=== PATIENT | female | born 1960 | race Caucasian/White ===

== ENCOUNTER → 2017-02-14 | Day surgery (SDC) | payer OTHER ==
[~2017-02-14] MED LIST: ANASTROZOLE1 MG PO; ASPIRIN EC325 MG PO; BUSPIRONE HCL10 MG PO; COLACE100 MG PO; FOLIC ACID1 MG PO; KEFLEX250 MG PO; LIPITOR40 MG PO; NEXIUM40 MG PO; NORCO 5-325 TA1 EACH PO; OMEPRAZOLE10 MG PO; VITAMIN D400 UNIT PO; ZOLOFT100 MG PO
== END | disposition home or self-care (01) ==
LOC: FAS 11:24
DX: T85.49XA Other mechanical complication of breast prosthesis and implant, initial encounter (principal); G47.30 Sleep apnea, unspecified; K21.9 Gastro-esophageal reflux disease without esophagitis; M19.90 Unspecified osteoarthritis, unspecified site; F32.9 Major depressive disorder, single episode, unspecified; Z85.3 Personal history of malignant neoplasm of breast; E78.00 Pure hypercholesterolemia, unspecified; E66.9 Obesity, unspecified; Z81.8 Family history of other mental and behavioral disorders; Z83.2 Family history of diseases of the blood and blood-forming organs and certain disorders involving the immune mechanism; Z83.3 Family history of diabetes mellitus; Z83.49 Family history of other endocrine, nutritional and metabolic diseases; Z82.49 Family history of ischemic heart disease and other diseases of the circulatory system; Z80.0 Family history of malignant neoplasm of digestive organs; Z79.2 Long term (current) use of antibiotics; Z79.899 Other long term (current) drug therapy; Z90.49 Acquired absence of other specified parts of digestive tract; Z90.13 Acquired absence of bilateral breasts and nipples; Z98.890 Other specified postprocedural states
CPT/HCPCS: J1956; J2405; J2704; J2765; J3010

== ENCOUNTER → 2017-04-19 | Day surgery (SDC) | payer OTHER | END | disposition home or self-care (01) | LOC: FAS 07:52 | DX: Z12.11 Encounter for screening for malignant neoplasm of colon (principal); K21.9 Gastro-esophageal reflux disease without esophagitis; F32.9 Major depressive disorder, single episode, unspecified; E78.00 Pure hypercholesterolemia, unspecified; M19.90 Unspecified osteoarthritis, unspecified site; E66.9 Obesity, unspecified; Z68.33 Body mass index [BMI] 33.0-33.9, adult; Z90.49 Acquired absence of other specified parts of digestive tract; Z90.12 Acquired absence of left breast and nipple; Z86.010 Personal history of colon polyps; Z85.3 Personal history of malignant neoplasm of breast; Z83.2 Family history of diseases of the blood and blood-forming organs and certain disorders involving the immune mechanism; Z83.49 Family history of other endocrine, nutritional and metabolic diseases; Z83.3 Family history of diabetes mellitus; Z82.49 Family history of ischemic heart disease and other diseases of the circulatory system; Z80.0 Family history of malignant neoplasm of digestive organs; Z79.899 Other long term (current) drug therapy; Z98.890 Other specified postprocedural states | CPT/HCPCS: J2704 ==

== ENCOUNTER 2020-11-06 12:13 | Inpatient (IN) | payer MEDICARE, OTHER ==
[~2020-11-06 12:13] MED LIST changes: +EFFEXOR XR150 MG PO; +FOLGARD TABLET1 EACH PO
[2020-11-06 14:11] LABS: BASOPHIL 0.2 % (0-2); EOSINOPHIL 0 % (0-5); HCT 40.2 % (37.0-47.0); LYMPHOCYTE 14.8 % (15-48); MCH 28.8 pg (25.0-31.0); MCHC 32.3 g/dL (32.0-36.0); MCV 89.1 fL (78.0-100.0); MONOCYTE 6.4 % (0-12); MPV 9.7 fL (6.0-9.5); NEUTROPHIL 78.4 % (41-80); NRBC 0; PLT 178 K/uL (150-400); RBC 4.51 M/uL (4.20-5.40); RDW 14.6 % (11.5-14.0); WBC 4.4 K/uL (4.0-10.5)
[2020-11-06 14:21] LABS: BILIRUBIN 1+ mg/dL (NEGATIVE); BLOOD TRACE-INTACT Ery/uL (NEGATIVE); CLARITY CLEAR (CLEAR); COLOR YELLOW (YELLOW); GLUCOSE (U) NORMAL (NORMAL); LEUKOCYTES NEGATIVE Leu/uL (NEGATIVE); NITRITE NEGATIVE (NEGATIVE); PROTEIN 2+ mg/dL (NEGATIVE); SPECIFIC GRAVITY >=1.030 (1.001-1.030); pH 6.5 (5.0-9.0)
[2020-11-06 14:28] LABS: BACTERIA TRACE; SQUAMOUS EPITHELIAL CELLS RARE
[2020-11-06 14:30] LABS: ALBUMIN 3.4 g/dL (3.4-5.0); BILIRUBIN - TOTAL 0.5 mg/dL (0.2-1.0); BUN/CREAT RATIO (CALC) 14.1 RATIO; CREATININE 0.71 mg/dL (0.51-0.95); GLOBULIN (CALCULATION) 4.5 g/dL; POTASSIUM 3.8 mmol/L (3.5-5.1); TOTAL PROTEIN 7.9 g/dL (6.4-8.2)
[2020-11-06] MEDS ORDERED: ZEGERID 20 MG1 EACH PO (21:02)
[2020-11-06 22:36] LABS: MAGNESIUM 2.6 mg/dL (1.8-2.4)
[2020-11-07 03:22] LABS: BASOPHIL 0 % (0-2); EOSINOPHIL 0 % (0-5); HCT 35.8 % (37.0-47.0); HGB 11.7 g/dl (12.5-16.0); LYMPHOCYTE 33.7 % (15-48); MCH 29.2 pg (25.0-31.0); MCHC 32.7 g/dL (32.0-36.0); MCV 89.3 fL (78.0-100.0); MPV 9.8 fL (6.0-9.5); NEUTROPHIL 56.8 % (41-80); NRBC 0; PLT 161 K/uL (150-400); RBC 4.01 M/uL (4.20-5.40); RDW 14.6 % (11.5-14.0)
[2020-11-07 03:38] LABS: BUN/CREAT RATIO (CALC) 15.8 RATIO; CREATININE 0.57 mg/dL (0.51-0.95); POTASSIUM 3.8 mmol/L (3.5-5.1)
[2020-11-08 03:35] LABS: BASOPHIL 0 % (0-2); EOSINOPHIL 0 % (0-5); HCT 36.2 % (37.0-47.0); HGB 11.5 g/dl (12.5-16.0); LYMPHOCYTE 20.5 % (15-48); MCH 28.7 pg (25.0-31.0); MCHC 31.8 g/dL (32.0-36.0); MCV 90.3 fL (78.0-100.0); MONOCYTE 6.4 % (0-12); MPV 10.2 fL (6.0-9.5); NEUTROPHIL 72.7 % (41-80); NRBC 0; PLT 176 K/uL (150-400); RBC 4.01 M/uL (4.20-5.40); RDW 14.9 % (11.5-14.0)
[2020-11-08 04:09] LABS: BUN/CREAT RATIO (CALC) 17.5 RATIO; CREATININE 0.63 mg/dL (0.51-0.95); MAGNESIUM 1.8 mg/dL (1.8-2.4); POTASSIUM 3.4 mmol/L (3.5-5.1)
[2020-11-08 04:24] LABS: WBC 5.7 K/uL (4.0-10.5)
[2020-11-09] MEDS ORDERED: MEDROL 4MG DOSEP4 MG PO (15:02)
--- NOTE | 2020-11-09 15:03 | NUR ---
SPOKE WITH PT. VIA PHONE, SHE IS IN AGREEMENT WITH [facility]. SHE WILL BE DISCHARING TODAY. SHE DOES NOT REQUIRE ANY OTHER NEEDS.
== END 2020-11-09 16:48 | disposition home health service (06) | DRG 177 ==
LOC: FER 12:13 → FMS 19:20
PROVIDERS: Hospitalist; Nurse Practitioner Family; ADMIT Internal Medicine
PROC: 8E0ZXY6 Isolation (ICD-10-PCS; principal; 2020-11-06)
PROC: XW033E5 Introduction of Remdesivir Anti-infective into Peripheral Vein, Percutaneous Approach, New Technology Group 5 (ICD-10-PCS; 2020-11-07)
DX: U07.1 COVID-19 (principal); J12.89 Other viral pneumonia; J96.01 Acute respiratory failure with hypoxia; E78.5 Hyperlipidemia, unspecified; G47.33 Obstructive sleep apnea (adult) (pediatric); K21.9 Gastro-esophageal reflux disease without esophagitis; F32.9 Major depressive disorder, single episode, unspecified; Z85.3 Personal history of malignant neoplasm of breast; Z90.13 Acquired absence of bilateral breasts and nipples; Z90.49 Acquired absence of other specified parts of digestive tract
CPT/HCPCS: 36415; 36600; 71275; 80048; 80053; 81001; 82550; 82803; 83605; 83615; 83735; 84145; 84484; 85025; 93005; 94664; 94667; C9399; J0456; J1100; J1650; J2270; J2405; J2930; J3475; J7030; J7050; Q9967